=== PATIENT | female | born 1960 | race Caucasian/White ===

== ENCOUNTER 2017-04-18 10:42 | Emergency (ER) | payer MEDICAID, OTHER ==
[2017-04-18] MEDS ORDERED: Fluorescein Opthalmic Strip ONE (11:06)
[2017-04-18] MEDS ORDERED: Tetracaine HCl 0.5% Ophth Soln 2 ML Bottle ONE (11:07)
== END 2017-04-18 11:54 | disposition home or self-care (01) ==
LOC: NAV ERS 10:42
DX: H16.002 Unspecified corneal ulcer, left eye (principal); E03.9 Hypothyroidism, unspecified; N18.9 Chronic kidney disease, unspecified; Z87.442 Personal history of urinary calculi; Z79.899 Other long term (current) drug therapy
CPT/HCPCS: 99283